=== PATIENT | female | born 1940 | race Asian ===

== ENCOUNTER 2019-07-05 11:23 | Inpatient (IN) | payer OTHER ==
[~2019-07-05] VITALS: Ht 154.9 cm; Wt 55.3 kg
--- NOTE | 2019-07-05 11:34 | NUR ---
Patient to ER bed 01 to gown for evaluation. Side rails up.
[2019-07-05 11:35] VITALS: BP_SYST 133
--- NOTE | 2019-07-05 11:45 | NUR ---
Patient was sent for eval of left hip pain and non-ambulation after unwitnessed fall. Patient is confused and does not localize pain, however she does verbalize that she is hungry.
--- NOTE | 2019-07-05 11:50 | NUR ---
ER Dr. Morrison at bedside examining patient.
[2019-07-05 12:24] LABS: ANION GAP 6 (5-15); BASOPHILS # (AUTO) 0.1 K/uL (0.0-0.2); BASOPHILS % (AUTO) 1.2 % (0.0-2.0); CALCIUM 8.4 mg/dL (8.4-11.0); CHLORIDE 109 mmol/L (98-107); CREATININE 0.72 mg/dL (0.55-1.30); EOSINOPHILS # (AUTO) 0.2 K/uL (0.0-0.4); EOSINOPHILS % (AUTO) 3.9 % (0.0-4.0); GLUCOSE 138 mg/dL (70-99); HEMATOCRIT 45.3 % (36-48); HEMOGLOBIN 15.2 g/dL (12.0-16.0); LYMPHOCYTES # (AUTO) 1.3 K/uL (1.0-5.5); MEAN CORPUSCULAR HEMOGLOBIN 33 pg (27-31); MEAN CORPUSCULAR HGB CONC 34 % (32-36); MEAN CORPUSCULAR VOLUME 98 fL (79.0-98.0); MONOCYTES # (AUTO) 0.6 K/uL (0.0-1.0); MONOCYTES % (AUTO) 10.2 % (1.7-9.3); NEUTROPHILS # (AUTO) 4.1 K/uL (1.8-7.7); NEUTROPHILS % (AUTO) 64.7 % (40.0-70.0); PLATELET COUNT (AUTO) 146 K/uL (130-430); POTASSIUM 4.3 mmol/L (3.5-5.1); RED BLOOD CELL COUNT(AUTO) 4.62 MIL/uL (4.2-6.2); RED CELL DISTRIBUTION WIDTH 15.4 % (9.0-15.0); SODIUM SERUM 143 mmol/L (136-145); UREA NITROGEN, BLOOD 15 mg/dL (8-21); WHITE BLOOD COUNT (AUTO) 6.3 K/uL (4.8-10.8)
[2019-07-05 12:29] LABS: INR 1.1 (0.8-1.2); PROTHROMBIN TIME 11.3 SECS (9.5-12.5)
[2019-07-05 12:30] LABS: ALANINE AMINOTRANSFERASE 246 U/L (12-78); ALBUMIN 3.1 g/dL (3.4-4.8); ASPARTATE AMINOTRANSFERASE 130 U/L (10-37); TOTAL BILIRUBIN 1.1 mg/dL (0.0-1.0)
--- NOTE | 2019-07-05 12:30 | NUR ---
# 16 FR Sandoval catheter with use of sterile technique. Immediate return of 100 cc clear yellow urine noted. Bedside drainage bag placed below level of bladder. Urine sample collected and sent to lab. Pt tolerated procedure well. Patient arrived with sandoval in place, changed due to standard of practice prior to admission. Patient unable to toilet self.
[2019-07-05 12:41] LABS: BILIRUBIN,URINE NEGATIVE (NEGATIVE); CLARITY/URINE SL HAZY (CLEAR); COLOR,URINE YELLOW (YELLOW); GLUCOSE,URINE NEGATIVE (NEGATIVE); KETONES,URINE NEGATIVE (NEGATIVE); LEUKOCYTE ESTERASE ,URINE NEGATIVE (NEGATIVE); NITRITE, URINE NEGATIVE (NEGATIVE); PH,URINE 5.5 (5.0-8.0); PROTEIN URINE NEGATIVE (NEGATIVE); UROBILINOGEN,URINE 0.2 (0.2-1.0)
[2019-07-05] MEDS ORDERED: fentaNYL CITRATE/PF 100 MCG/2 ML AMP IVP ONE (12:45)
[2019-07-05] MEDS ORDERED: ASPI-1153 PO (12:45)
[2019-07-05] MEDS ORDERED: LIP10 PO (12:45)
[2019-07-05] MEDS ORDERED: OLAN7.5T3 PO (12:45)
[2019-07-05] MEDS ORDERED: FURO-149 PO (12:45)
[2019-07-05] MEDS ORDERED: LISI10TA5 PO (12:45)
[2019-07-05] MEDS ORDERED: DONE10TA44 PO (12:45)
[2019-07-05] MEDS ORDERED: MOM PO (12:45)
[2019-07-05] MEDS ORDERED: CARV3.1246 PO (12:45)
[2019-07-05] MEDS ORDERED: ACET325T53 PO (12:45)
[2019-07-05] MEDS ORDERED: POTA20TA83 PO (12:45)
[2019-07-05] MEDS ORDERED: DOCU-144 PO (12:45)
[2019-07-05] MEDS ORDERED: ACET-2634 PO (12:45)
[2019-07-05] MEDS ORDERED: ISOS30TA6 PO (12:45)
[2019-07-05] MEDS ORDERED: LORA-258 PO (12:45)
[2019-07-05] MEDS ORDERED: DEPAK250 PO (12:45)
[2019-07-05 12:52] LABS: BLOOD, URINE TRACE (NEGATIVE)
[2019-07-05 12:55] LABS: BACTERIA,URINE RARE /HPF (None Seen); RBC,URINE 0-3 /HPF (0-3); WBC,URINE NONE SEEN /HPF (0-3)
[2019-07-05] MEDS ORDERED: MORPHINE 2 MG/ML INJ. SYRINGE IVP PRN (13:00)
[2019-07-05] MEDS ORDERED: ONDANSETRON HCL 4 MG/2 ML VIAL IVP PRN (13:00)
--- NOTE | 2019-07-05 13:09 | NUR ---
Patient will be admitted to care of Dr. Bautista. Admitted to telemetry unit. JOSE Roth to assign room. Belongings list completed. Summary report printed. Report will be given at bedside.
--- NOTE | 2019-07-05 14:00 | NUR ---
Patient transferred to room room 104B via [facility], mobile monitor, RN, EMT with patent/intact IV. Bedside report given to Jessica Rdz RN for continuation of care.
--- NOTE | 2019-07-05 14:05 | NUR ---
ADMIT NOTE Received pt from ER to the floor with a diagnosis of FEMUR FRACTURE. Admission process initiated. safety and call light-teach back done.NEEDS FOLLOW UP
--- NOTE | 2019-07-05 14:19 | NUR ---
Initial physical assessment: Patient alert, awake and oriented x1. Able to move upper extremities. Unable to move Lower extremities due to severe pain. No skin issues. Safety measures in placed. Call light within reach. Report received from AMANDA Arias nurse.
--- NOTE | 2019-07-05 14:29 | NUR ---
CONSULTATION PAGED REASON FOR CONSULTATION:FEMUR FRACTURE WAS CONSULT CALLED?Y PERSON WHO WAS NOTIFIED:TOÑO CONSULTING PHYSICIAN:CLARE NANCE WILLIAM (ASHISH BRYSON MERCHANDISER SEASONAL) [phone] AIR PLANT ENGINEER SPECIALTY:ORTHO AIR PLANT ENGINEER PHONE NUMBER:[phone] ORDERING PHYSICIAN:PADMAJA FRYE
[2019-07-05] MEDS: D5/0.45 NS 1,000 ML IV SCH ×2 (15:00→23:36)
[2019-07-05 15:14] VITALS: BP_SYST 132
[2019-07-05 15:16] VITALS: BP_SYST 123
--- NOTE | 2019-07-05 16:01 | NUR ---
ROUNDS: Patient sleeping. no distress noted.
--- NOTE | 2019-07-05 17:27 | NUR ---
rounds: patient sleeping. no distress noted.
[2019-07-05] MEDS: MORPHINE 2 MG/ML INJ. SYRINGE IVP PRN (18:11)
--- NOTE | 2019-07-05 18:53 | NUR ---
Closing notes: Patient on bed sleeping. Stable. Needs attended. Call light within reach. Report will be given to night shift manager.
--- NOTE | 2019-07-05 19:49 | NUR ---
OPENING NOTES Pt and endorsement received from day shift nurse. Pt is resting in bed with both eyes closed, with visible chest rise and fall with non-labored breathing noted. Pt on IVF with D5,0.45NS at 100ml/hr and infusing well on right AC G22. No moaning or grimacing noted. No signs of acute distress or SOB noted. Safety precautions in place with 3 side rails up, wheels locked, bed alarm on and in lowest level. Call light with pt. Will continue to monitor.
[2019-07-05 20:35] VITALS: BP_SYST 138
--- NOTE | 2019-07-05 20:58 | NUR ---
SEEN BY DR. BAUTISTA Pt seen by Dr. Bautista. He reviewed pt's home meds and continued or held medicines. Also ordered labs in the morning. Read back orders and will carry out.
[2019-07-05] MEDS ORDERED: MILK OF MAGNESIA 30 ML UDC PO PRN (21:00)
[2019-07-05] MEDS ORDERED: ACETAMINOPHEN 325 MG TABLET PO PRN (21:00)
[2019-07-05] MEDS ORDERED: ACETAMINOPHEN 500 MG TABLET PO PRN (21:00)
[2019-07-05] MEDS: LISINOPRIL 10 MG TABLET (PRINIVIL) PO SCH (21:33)
[2019-07-05] MEDS: DONEPEZIL HCL 5 MG TABLET (ARICEPT) PO SCH (21:33)
[2019-07-05] MEDS: OLANZapine 2.5 MG TABLET PO SCH (21:33)
[2019-07-05] MEDS: ATORVASTATIN 10 MG TABLET PO SCH (21:33)
[2019-07-05] MEDS: CARVEDILOL 3.125 MG TABLET (COREG) PO SCH (21:34)
[2019-07-05] MEDS: VALPROIC ACID 250 MG CAPSULE (DEPAKENE) PO SCH (21:34)
--- NOTE | 2019-07-05 21:35 | NUR ---
MED PASS All oral due meds given and pt tolerated well. Gave sandwich, pudding and juice per pt's request. No complains of pain and no signs of acute distress noted. IVF infusing well. Safety precautions in place and call light with pt. Will continue to monitor.
--- NOTE | 2019-07-05 23:30 | NUR ---
ROUNDS Pt is resting in bed with both eyes closed, with visible chest rise and fall with non-labored breathing noted. IVF infusing well. No signs of acute distress or SOB noted. Safety precautions in place and call light with pt. Will continue to monitor.
[2019-07-06 01:43] VITALS: BP_SYST 107
--- NOTE | 2019-07-06 02:40 | NUR ---
ROUNDS Pt is resting in bed with both eyes closed, with visible chest rise and fall with non-labored breathing noted. No complains of pain and no signs of acute distress or SOB noted. No needs at this time. Safety precautions in place and call light with pt. Will continue to monitor.
--- NOTE | 2019-07-06 04:07 | NUR ---
ROUNDS Pt is resting in bed with both eyes closed, with visible chest rise and fall with non-labored breathing noted. Pt is easily arousable. IVF infusing well. No signs of acute distress noted. Safety precautions in place and call light with pt. Will continue to monitor.
--- NOTE | 2019-07-06 06:35 | NUR ---
CLOSING NOTES Pt is resting in bed with both eyes closed, with visible chest rise and fall with non-labored breathing noted. IVF infusing well. No moaning or grimacing noted. No signs of acute distress or SOB noted. All needs attended throughout the shift. Safety precautions maintained with 3 side rails up, wheels locked, bed alarm on and in lowest level. Call light with pt. Will endorse to day shift nurse.
--- NOTE | 2019-07-06 07:30 | NUR ---
am rounds: Patient is awake, confused but calm. No signs of discomfort noted. Safety precaution in place. Call light within reach. Patient speaks Mohawk only.
[2019-07-06 07:48] LABS: ANION GAP 8 (5-15); BASOPHILS # (AUTO) 0.1 K/uL (0.0-0.2); BASOPHILS % (AUTO) 0.7 % (0.0-2.0); CALCIUM 7.8 mg/dL (8.4-11.0); CHLORIDE 106 mmol/L (98-107); EOSINOPHILS # (AUTO) 0.1 K/uL (0.0-0.4); EOSINOPHILS % (AUTO) 0.9 % (0.0-4.0); GLUCOSE 139 mg/dL (70-99); HEMOGLOBIN 12.2 g/dL (12.0-16.0); LYMPHOCYTES # (AUTO) 1.7 K/uL (1.0-5.5); LYMPHOCYTES % (AUTO) 19.5 % (20.5-51.5); MEAN CORPUSCULAR HEMOGLOBIN 33 pg (27-31); MEAN CORPUSCULAR HGB CONC 34 % (32-36); MEAN CORPUSCULAR VOLUME 98 fL (79.0-98.0); MONOCYTES # (AUTO) 1.3 K/uL (0.0-1.0); MONOCYTES % (AUTO) 14.8 % (1.7-9.3); NEUTROPHILS # (AUTO) 5.4 K/uL (1.8-7.7); NEUTROPHILS % (AUTO) 64.1 % (40.0-70.0); PLATELET COUNT (AUTO) 126 K/uL (130-430); POTASSIUM 3.9 mmol/L (3.5-5.1); RED BLOOD CELL COUNT(AUTO) 3.68 MIL/uL (4.2-6.2); RED CELL DISTRIBUTION WIDTH 14.8 % (9.0-15.0); SODIUM SERUM 138 mmol/L (136-145); UREA NITROGEN, BLOOD 9 mg/dL (8-21); WHITE BLOOD COUNT (AUTO) 8.5 K/uL (4.8-10.8)
[2019-07-06 08:42] VITALS: BP_SYST 132
--- NOTE | 2019-07-06 08:59 | NUR ---
Nutrition Update Boy Scale 15 noted. Pt admitted for femur fracture. Diet: regular BMI: 11 kg/m2 RD to follow per nutrition care standards.
[2019-07-06] MEDS: D5/0.45 NS 1,000 ML IV SCH ×2 (09:15→20:04)
[2019-07-06] MEDS: POTASSIUM CHLORIDE 20 MEQ TAB.PRT.SR PO SCH (09:17)
[2019-07-06] MEDS: cefTRIAXone 1 GM IVPB PREMIX 50 ML IV SCH (09:17)
[2019-07-06] MEDS: VALPROIC ACID 250 MG CAPSULE (DEPAKENE) PO SCH ×2 (09:18→20:47)
[2019-07-06] MEDS: ISOSORBIDE MONONITRATE 30 MG TAB.ER.24H PO SCH (09:18)
[2019-07-06] MEDS: FUROSEMIDE 40 MG TABLET PO SCH (09:18)
[2019-07-06] MEDS: CARVEDILOL 3.125 MG TABLET (COREG) PO SCH ×2 (09:19→20:47)
[2019-07-06] MEDS: DOCUSATE SODIUM 100 MG CAPSULE PO SCH (09:21)
--- NOTE | 2019-07-06 09:25 | NUR ---
Med pass: Patient took meds without difficulty.
--- NOTE | 2019-07-06 09:36 | NUR ---
KASSY CONSULT: S/W LINO CABAN FOR CONSULT. Addendum: 07/06/19 at 1758 by Lety Monterroso RN ID CONSULT CALLED: S/W LINO CABAN FOR CONSULT.
--- NOTE | 2019-07-06 10:30 | NUR ---
Rounds: Patient is resting. No change in assessment.
[2019-07-06 11:25] VITALS: BP_SYST 105
--- NOTE | 2019-07-06 14:15 | NUR ---
Rounds: Repositioned patient. pillow placed in between thighs.
[2019-07-06 15:23] VITALS: BP_SYST 98
--- NOTE | 2019-07-06 15:33 | NUR ---
Dietitian Recommendations * Recommend regular diet w/ Ensure Enlive BID (ONS provides 700 kcal/day, 40 gm protein/day) NORMA WAGONER Please refer to Nutrition Assessment for details. Addendum: 07/06/19 at [address] Amended: Links added.
--- NOTE | 2019-07-06 18:25 | NUR ---
end of shift: needs attended. no change in assessment. patient is calm.
--- NOTE | 2019-07-06 19:43 | NUR ---
Initial note: Received report from dayshift RN. Patient is awake in bed, no acute distress. Alert and oriented to name only. IV site to right AC is patent and benign, receiving IV fluids per MD order. Jovel catheter draining to gravity. Bed locked in lowest position, side rails raised x3, bed alarm on, room is close to nurses' station. Call light is with patient. Will continue to monitor.
[2019-07-06 20:00] VITALS: BP_SYST 123
[2019-07-06] MEDS: ATORVASTATIN 10 MG TABLET PO SCH (20:46)
[2019-07-06] MEDS: OLANZapine 2.5 MG TABLET PO SCH (20:46)
[2019-07-06] MEDS: DONEPEZIL HCL 5 MG TABLET (ARICEPT) PO SCH (20:47)
[2019-07-06] MEDS: LISINOPRIL 10 MG TABLET (PRINIVIL) PO SCH (20:47)
--- NOTE | 2019-07-06 21:44 | NUR ---
PAGED I PAGED DR. SPARKS @ [phone] I SPOKE WITH GLORY EXCHANGE
--- NOTE | 2019-07-06 22:41 | NUR ---
DR.HANES DR. SPARKS CALLED BACK @ [phone]
--- NOTE | 2019-07-06 22:42 | NUR ---
Dr. Georges: Dr. Georges called back at this time to clarify patient's procedure tomorrow. Dr. Georges stated that the surgery will be scheduled for some time in the evening. He ordered for the patient to be NPO after 0900. He stated that he will be available at the hospital at around 12 noon to discuss the procedure with family. Orders verified by read-back, RN to input. Will notify family regarding update in plan of care.
--- NOTE | 2019-07-06 22:50 | NUR ---
Spoke with daughter: Called patient's daughter Aide Swenson at [phone] and provided an update regarding the plan of care. Aide was informed that according to Dr. Georges, her mother will be undergoing surgery sometime in the evening, but she will need to speak with the doctor regarding the procedure before consent can be signed. Aide stated that she is unable to be at the hospital at 12 noon tomorrow to speak with Dr. Georges as she will be in and out of meetings. She stated that Dr. Georges can call her (phone [phone]) or her sister Meera Wood (phone [phone]) to discuss the procedure.
[2019-07-07 00:50] VITALS: BP_SYST 121
--- NOTE | 2019-07-07 01:12 | NUR ---
Rounds: Patient is resting in bed, no distress noted. Even and unlabored breathing on room air. IV fluids infusing well, no infiltration. Call light is with patient. Will continue to monitor.
--- NOTE | 2019-07-07 04:32 | NUR ---
Pain: Patient is awake, moaning and grimacing, indicating pain. Morphine 1 MG administered intravenously via right AC IV site. Site is patent and benign. Attempted to discuss indications and side effects of medication, but patient is confused. Call light with patient. Safety, fall precautions in place. Will continue monitoring.
[2019-07-07] MEDS: MORPHINE 2 MG/ML INJ. SYRINGE IVP PRN (04:38)
[2019-07-07] MEDS: D5/0.45 NS 1,000 ML IV SCH ×2 (05:33→22:33)
--- NOTE | 2019-07-07 06:26 | NUR ---
Closing note: Patient is resting in bed, no acute distress. Even and unlabored breathing on room air. IV fluids infusing as ordered to right AC IV site, no infiltration noted. Jovel catheter draining to gravity. All needs met. Safety and fall precautions observed. Hourly rounding performed throughout shift. Will endorse care to dayshift RN.
[2019-07-07 07:10] LABS: ANION GAP 7 (5-15); CALCIUM 8.5 mg/dL (8.4-11.0); CHLORIDE 104 mmol/L (98-107); CREATININE 0.62 mg/dL (0.55-1.30); GLUCOSE 158 mg/dL (70-99); POTASSIUM 4.3 mmol/L (3.5-5.1); SODIUM SERUM 140 mmol/L (136-145); UREA NITROGEN, BLOOD 6 mg/dL (8-21)
[2019-07-07 07:14] LABS: BASOPHILS # (AUTO) 0.1 K/uL (0.0-0.2); BASOPHILS % (AUTO) 0.7 % (0.0-2.0); EOSINOPHILS # (AUTO) 0.1 K/uL (0.0-0.4); EOSINOPHILS % (AUTO) 0.7 % (0.0-4.0); HEMATOCRIT 35.2 % (36-48); HEMOGLOBIN 11.9 g/dL (12.0-16.0); LYMPHOCYTES # (AUTO) 1.4 K/uL (1.0-5.5); LYMPHOCYTES % (AUTO) 16.1 % (20.5-51.5); MEAN CORPUSCULAR HEMOGLOBIN 33 pg (27-31); MEAN CORPUSCULAR HGB CONC 34 % (32-36); MEAN CORPUSCULAR VOLUME 98 fL (79.0-98.0); MONOCYTES # (AUTO) 1.4 K/uL (0.0-1.0); MONOCYTES % (AUTO) 15.1 % (1.7-9.3); NEUTROPHILS # (AUTO) 6.1 K/uL (1.8-7.7); NEUTROPHILS % (AUTO) 67.4 % (40.0-70.0); PLATELET COUNT (AUTO) 118 K/uL (130-430); RED CELL DISTRIBUTION WIDTH 14.7 % (9.0-15.0)
[2019-07-07 07:15] VITALS: BP_SYST 136
--- NOTE | 2019-07-07 07:45 | NUR ---
OPENING NOTES PT. was awake in bed. 3 side rails were up and bed was at lowest position. AAOx1 to her name. Reoriented pt. Pt. stated she had no pain. Right AC IV [address] with a gauze wrapped around the arm. Jovel catheter in place and intact. No signs or symptoms of distress noted. Safety precautions in place. Continue to monitor.
[2019-07-07] MEDS: cefTRIAXone 1 GM IVPB PREMIX 50 ML IV SCH (08:26)
[2019-07-07] MEDS: VALPROIC ACID 250 MG CAPSULE (DEPAKENE) PO SCH ×2 (08:26→21:51)
[2019-07-07] MEDS: DOCUSATE SODIUM 100 MG CAPSULE PO SCH (08:27)
[2019-07-07] MEDS: ISOSORBIDE MONONITRATE 30 MG TAB.ER.24H PO SCH (08:28)
[2019-07-07] MEDS: FUROSEMIDE 40 MG TABLET PO SCH (08:29)
[2019-07-07] MEDS: POTASSIUM CHLORIDE 20 MEQ TAB.PRT.SR PO SCH (08:30)
[2019-07-07] MEDS: CARVEDILOL 3.125 MG TABLET (COREG) PO SCH ×2 (08:30→21:52)
--- NOTE | 2019-07-07 09:00 | NUR ---
pt completed breakfast and am meds. kept npo per order.
--- NOTE | 2019-07-07 10:03 | NUR ---
ROUNDING PT. is confused about situation. Reoriented pt. on place, time, and reason for stay. Pt. denies any pain. No signs or symptoms of distress noted. Safety precaution in place. Continue to monitor.
--- NOTE | 2019-07-07 12:22 | NUR ---
ROUNDING Pt. as trying to get out of bed. Reposition pt. Currently pt. is laying in bed. Re-oriented pt. to place, time, and reason. Provided comfort measures. Call light in reach. No signs or symptoms of distress. Continue to monitor.
[2019-07-07 12:54] VITALS: BP_SYST 110
--- NOTE | 2019-07-07 13:06 | NUR ---
DR. CLARE Georges came in to get information about consent. Dr. Georges will call the family to explain the procedure.
--- NOTE | 2019-07-07 14:06 | NUR ---
ROUNDING Pt. is confused. Reoriented pt. to time, place, and reason. Provided comfort measures. Safety precaution is in place. Call light in reach. Continue to monitor.
--- NOTE | 2019-07-07 14:28 | NUR ---
CIGARETTE AND FILTER CHIEF INSPECTOR CIGARETTE AND FILTER CHIEF INSPECTOR came and got telephone consent from family regarding surgery.
--- NOTE | 2019-07-07 14:47 | NUR ---
VERIFIED CONSENT Verified consent with JOSE Haywood through the telephone. Confirming that the doctor and LIME KILN OPERATOR talked to her, Meera (daughter), about surgery. Meera confirmed.
[2019-07-07 16:00] VITALS: BP_SYST 100
--- NOTE | 2019-07-07 16:30 | NUR ---
OH CATHETER Pt. pulled out Oh Catheter. Reinserted Oh Catheter. Educated pt. on Oh Catheter. Continue to monitor. Addendum: 07/07/19 at 1739 by Marlen Vega RN Reinserted new Oh Catheter.
[2019-07-07 16:50] VITALS: BP_SYST 144
[2019-07-07] MEDS ORDERED: CEFAZOLIN 2 GM IVPB PREMIX 50 ML IV ONE (18:50)
[2019-07-07] MEDS ORDERED: LR 1,000 ML IV.SOLN IV ONE (18:50)
[2019-07-07] MEDS ORDERED: MORPHINE SULFATE 10MG/10ML PF AMP EP ONE (18:50)
[2019-07-07] MEDS ORDERED: BUPIVACAINE /DEX PF 0.75% SPINAL 2 ML AMP INJ ONE (18:50)
[2019-07-07] MEDS ORDERED: PROPOFOL 200MG/ 20ML VIAL (DIPRIVAN) IV ONE (18:50)
[2019-07-07] MEDS ORDERED: MIDAZOLAM HCL 5 MG/5 ML VIAL IVP ONE (18:50)
[2019-07-07] MEDS ORDERED: POLYMYXIN 500,000/BACIT.10,000 UNITS in NS IRR 1 L IR ONE (18:58)
--- NOTE | 2019-07-07 19:07 | NUR ---
CLOSING NOTES Pt. pulled out Jovel again. Re-inserted new Jovel Catheter. Transferred Pt. to O.R. Gave SBAR.
[2019-07-07] MEDS ORDERED: fentaNYL CITRATE/PF 100 MCG/2 ML AMP IVP PRN ×2 (19:45)
[2019-07-07] MEDS ORDERED: ONDANSETRON HCL 4 MG/2 ML VIAL IVP PRN (19:45)
[2019-07-07] MEDS ORDERED: KETOROLAC TROMETHAMINE 60 MG/2 ML VIAL IM PRN (19:45)
[2019-07-07] MEDS ORDERED: DIPHENHYDRAMINE INJ 50 MG/ML VIAL IVP PRN (19:45)
[2019-07-07] MEDS ORDERED: NALBUPHINE HCL 10 MG/ML AMP IVP PRN (19:45)
[2019-07-07] MEDS ORDERED: MORPHINE SULFATE 10MG/10ML PF AMP SP SCH (19:45)
[2019-07-07] MEDS ORDERED: NALOXONE HCL 0.4 MG/ML AMP (NARCAN) IVP PRN ×2 (19:45)
[2019-07-07 21:25] VITALS: BP_SYST 129
--- NOTE | 2019-07-07 21:25 | NUR ---
Initial note: Patient is back from OR accompanied by 2 RN's. Patient arrived awake, alert and oriented to name. Even and unlabored breathing on room air. IV to right AC was dislodged upon return to unit. New IV inserted by OR nurse JOSE Sesay to left hand at this time. Jovel catheter draining to gravity. Call light with patient. Will continue to monitor.
[2019-07-07] MEDS: ATORVASTATIN 10 MG TABLET PO SCH (21:51)
[2019-07-07] MEDS: OLANZapine 2.5 MG TABLET PO SCH (21:51)
[2019-07-07] MEDS: DONEPEZIL HCL 5 MG TABLET (ARICEPT) PO SCH (21:51)
[2019-07-07] MEDS: LISINOPRIL 10 MG TABLET (PRINIVIL) PO SCH (21:52)
[2019-07-07] MEDS ORDERED: CEFAZOLIN 1 GM IVPB PREMIX 100 ML IV ONE (21:55)
[2019-07-07] MEDS: CEFAZOLIN 1 GM IVPB PREMIX 50 ML IV SCH (22:33)
--- NOTE | 2019-07-07 23:13 | NUR ---
Dr. Georges: Spoke with Dr. Georges over phone. Informed MD of patient's surgical dressing moderately saturated in blood in two areas, one area measuring 5 CM in width and another area measuring 4.5 CM in width. MD was also made aware that the blood is leaking through the transparent dressing. Dr. Georges ordered to reinforce the surgical dressing with an abdominal pad folded in half. He stated to not remove the original dressing. Order verified by read-back, will follow through.
[2019-07-08 01:58] VITALS: BP_SYST 113
--- NOTE | 2019-07-08 02:32 | NUR ---
Rounds: Patient is resting in bed, no acute distress. Tolerating room air. IV fluids infusing as ordered. Call light is with patient. Will continue to monitor.
[2019-07-08 04:35] VITALS: BP_SYST 113
--- NOTE | 2019-07-08 04:56 | NUR ---
Rounds: Patient is resting in bed. Does not show any acute distress. IV site is patent and benign. Even and unlabored breathing on room air. Call light is with patient. Will continue to monitor.
[2019-07-08] MEDS: D5/0.45 NS 1,000 ML IV SCH ×2 (06:14→14:32)
[2019-07-08] MEDS: CEFAZOLIN 1 GM IVPB PREMIX 50 ML IV SCH (06:15)
--- NOTE | 2019-07-08 06:35 | NUR ---
Closing note: Patient is resting in bed, no distress. IV fluids infusing as ordered. All needs met. Hourly rounding performed throughout shift. Safety and fall precautions maintained. Will endorse to dayshift RN.
--- NOTE | 2019-07-08 07:20 | NUR ---
INITIAL NOTE BEDSIDE REPORT RECEIVED BY ERP CONSULTANT RN. PT RESTING IN BED. NO ACUTE DISTRESS NOTED. BREATHING EVEN AND UNLABORED. IVF INFUSING WELL. OH DRAINING TO GRAVITY. CALL LIGHT WITHIN REACH, BED IN LOW AND LOCKED POSITION WITH BED ALARM ON.
[2019-07-08 07:45] LABS: BASOPHILS % (AUTO) 0.5 % (0.0-2.0); EOSINOPHILS % (AUTO) 0.5 % (0.0-4.0); HEMATOCRIT 31.2 % (36-48); HEMOGLOBIN 10.7 g/dL (12.0-16.0); LYMPHOCYTES # (AUTO) 1.7 K/uL (1.0-5.5); LYMPHOCYTES % (AUTO) 16.5 % (20.5-51.5); MEAN CORPUSCULAR HEMOGLOBIN 34 pg (27-31); MEAN CORPUSCULAR HGB CONC 34 % (32-36); MEAN CORPUSCULAR VOLUME 99 fL (79.0-98.0); MONOCYTES # (AUTO) 1.7 K/uL (0.0-1.0); MONOCYTES % (AUTO) 16.7 % (1.7-9.3); NEUTROPHILS # (AUTO) 6.7 K/uL (1.8-7.7); NEUTROPHILS % (AUTO) 65.8 % (40.0-70.0); PLATELET COUNT (AUTO) 115 K/uL (130-430); RED BLOOD CELL COUNT(AUTO) 3.17 MIL/uL (4.2-6.2); WHITE BLOOD COUNT (AUTO) 10.2 K/uL (4.8-10.8)
[2019-07-08 08:00] VITALS: BP_SYST 97
[2019-07-08] MEDS: cefTRIAXone 1 GM IVPB PREMIX 50 ML IV SCH (08:23)
[2019-07-08] MEDS: POTASSIUM CHLORIDE 20 MEQ TAB.PRT.SR PO SCH ×2 (08:24→09:00)
[2019-07-08] MEDS: ISOSORBIDE MONONITRATE 30 MG TAB.ER.24H PO SCH (08:24)
[2019-07-08] MEDS: VALPROIC ACID 250 MG CAPSULE (DEPAKENE) PO SCH ×2 (08:24→22:30)
[2019-07-08] MEDS: DOCUSATE SODIUM 100 MG CAPSULE PO SCH (08:24)
--- NOTE | 2019-07-08 08:53 | NUR ---
Physical Therapy order has been received and the chart reviewed. Nurse requested to attempt the evaluation at a later time because the patient has low blood pressure. Plan: Attempt evaluation later. Check with RN regarding the patient's status.
[2019-07-08] MEDS: CARVEDILOL 3.125 MG TABLET (COREG) PO SCH ×2 (09:00→21:00)
[2019-07-08] MEDS: FUROSEMIDE 40 MG TABLET PO SCH (09:00)
--- NOTE | 2019-07-08 09:20 | NUR ---
RN ROUNDS REPOSITIONED PT FOR COMFORT. PT RESTING, BREATHING EVEN AND UNLABORED. NO ACUTE DISTRESS NOTED.
--- NOTE | 2019-07-08 11:20 | NUR ---
RN ROUNDS PT RESTING, NO ACUTE DISTRESS NOTED, BREATHING EVEN AND UNLABORED.
[2019-07-08 12:33] VITALS: BP_SYST 92
--- NOTE | 2019-07-08 13:04 | NUR ---
MD ROUNDS DR. ROJAS AT BEDSIDE EXAMINING PT.
--- NOTE | 2019-07-08 13:05 | NUR ---
MD ROUNDS DR. ROJAS AT BEDSIDE EXAMINING PATIENT.
[2019-07-08] MEDS: LORazepam 1 MG TABLET PO PRN ×2 (14:07→18:22)
--- NOTE | 2019-07-08 14:07 | NUR ---
RN ROUNDS PATIENT AGITATED, PULLING ON LINES. PRN ATIVAN INDICATED FOR RESTLESSNESS AND AGITATION. ATIVAN ADMINISTERED. WILL CONTINUE TO MONITOR.
[2019-07-08 15:13] VITALS: BP_SYST 103
--- NOTE | 2019-07-08 16:00 | NUR ---
RN ROUNDS PT RESTING IN BED. FAMILY AT BEDSIDE. NO ACUTE DISTRESS NOTED. BREATHING EVEN AND UNLABORED.
--- NOTE | 2019-07-08 16:44 | NUR ---
RN ROUNDS PATIENT SAT UP WITH PHYSICAL THERAPY. PT REFUSED TO STAND UP. REPOSITIONED PT BACK IN BED. NO ACUTE DISTRESS NOTED.
[2019-07-08] MEDS: ENOXAPARIN SODIUM 40 MG/0.4 ML SYRINGE SUBCUT SCH (19:00)
--- NOTE | 2019-07-08 19:42 | NUR ---
CLOSING NOTE BEDSIDE REPORT GIVEN TO MANAGER TRAINING RN. PT RESTING IN BED, NO ACUTE DISTRESS NOTED, BREATHING EVEN AND UNLABORED. OH DRAINING TO GRAVITY, IV FLUIDS INFUSING WELL. CALL LIGHT WITHIN REACH, BED IN LOW AND LOCKED POSITION WITH BED ALARM ON. PT CARE ENDORSED TO MANAGER TRAINING RN.
--- NOTE | 2019-07-08 19:45 | NUR ---
PM NOTES RECEIVE PATIENT FROM AM NURSE. PT RESTING IN BED, NO ACUTE DISTRESS NOTED, BREATHING EVEN AND UNLABORED. OH DRAINING TO GRAVITY, IV FLUIDS INFUSING WELL. PATIENT NEEDS MET AND ATTENDED. CALL LIGHT WITHIN REACH, BED IN LOW AND LOCKED POSITION WITH BED ALARM ON.
[2019-07-08] MEDS ORDERED: NS 500 ML IV SCH ×2 (20:00→23:00)
[2019-07-08] MEDS: LISINOPRIL 10 MG TABLET (PRINIVIL) PO SCH (21:00)
--- NOTE | 2019-07-08 22:00 | NUR ---
RN ROUNDS Patient is asleep. No signs of respiratory distress. NO SOB. Breathing even and unlabored. Will continue to monitor.
[2019-07-08] MEDS: ATORVASTATIN 10 MG TABLET PO SCH (22:29)
[2019-07-08] MEDS: OLANZapine 2.5 MG TABLET PO SCH (22:29)
[2019-07-08] MEDS: DONEPEZIL HCL 5 MG TABLET (ARICEPT) PO SCH (22:31)
--- NOTE | 2019-07-09 | NUR ---
MIDNIGHT VITALS Patient Vital taken by FABRIC AWNING REPAIRER. BP within normal limits. IV bolus not indicated at this time. Patient is asleep. No signs of respiratory distress. Will continue to monitor.
[2019-07-09 00:46] VITALS: BP_SYST 113
--- NOTE | 2019-07-09 02:00 | NUR ---
RN ROUNDS Patient is asleep. No signs or respiratory distress. Breathing even and unlabored. Will continue to monitor.
[2019-07-09] MEDS: D5/0.45 NS 1,000 ML IV SCH ×3 (03:16→15:44)
[2019-07-09 04:00] VITALS: BP_SYST 104
--- NOTE | 2019-07-09 04:10 | NUR ---
RE ENFORCED DRESSING Re enforced dressing per MD order. No active bleeding noted. Patient tolerated well. All needs met. Call light with patient. Bed alarm on. Will continue to monitor.
[2019-07-09 06:29] LABS: BASOPHILS % (AUTO) 0.6 % (0.0-2.0); EOSINOPHILS # (AUTO) 0.2 K/uL (0.0-0.4); EOSINOPHILS % (AUTO) 1.7 % (0.0-4.0); HEMATOCRIT 28.6 % (36-48); HEMOGLOBIN 9.9 g/dL (12.0-16.0); LYMPHOCYTES # (AUTO) 1.6 K/uL (1.0-5.5); LYMPHOCYTES % (AUTO) 18.2 % (20.5-51.5); MEAN CORPUSCULAR HEMOGLOBIN 34 pg (27-31); MEAN CORPUSCULAR HGB CONC 35 % (32-36); MEAN CORPUSCULAR VOLUME 99 fL (79.0-98.0); MONOCYTES # (AUTO) 1.5 K/uL (0.0-1.0); MONOCYTES % (AUTO) 16.9 % (1.7-9.3); NEUTROPHILS # (AUTO) 5.6 K/uL (1.8-7.7); NEUTROPHILS % (AUTO) 62.6 % (40.0-70.0); PLATELET COUNT (AUTO) 148 K/uL (130-430); RED BLOOD CELL COUNT(AUTO) 2.89 MIL/uL (4.2-6.2); RED CELL DISTRIBUTION WIDTH 14.9 % (9.0-15.0); WHITE BLOOD COUNT (AUTO) 8.9 K/uL (4.8-10.8)
--- NOTE | 2019-07-09 06:37 | NUR ---
CLOSING NOTES Patient in bed at this time, sleeping. No s/s of acute distress noted. Breathing even and unlabored. IVF infusing well, IV site patent, no signs of infiltration or infection noted. Skin warm and dry to touch. Jovel attached, secured, and draining by gravity. Right hip dressing intact, clean, and dry. No signs of active bleeding noted. All needs met throughout shift. Fall and safety precautions maintained throughout shift. Will continue to monitor until patient care is endorsed to oncoming dayshift nurse.
[2019-07-09 07:04] LABS: ANION GAP 5 (5-15); CALCIUM 7.7 mg/dL (8.4-11.0); CHLORIDE 101 mmol/L (98-107); CREATININE 0.54 mg/dL (0.55-1.30); GLUCOSE 146 mg/dL (70-99); POTASSIUM 3.4 mmol/L (3.5-5.1); SODIUM SERUM 135 mmol/L (136-145); UREA NITROGEN, BLOOD 7 mg/dL (8-21)
--- NOTE | 2019-07-09 07:25 | NUR ---
OPENING NOTE: MORNING REPORT TAKEN AT BEDSIDE WITH NIGHT NURSE. PT RESTING IN BED WITH NO SIGNS OF RESP DISTRESS. OH HANGING TO GRAVITY. CALL LIGHT IS IN REACH. BED ALARM IS ON AND BED IN LOWEST POSITION WITH SIDE RAILS UP. WILL CONTINUE TO MONITOR.
[2019-07-09 08:27] VITALS: BP_SYST 107
[2019-07-09] MEDS: VALPROIC ACID 250 MG CAPSULE (DEPAKENE) PO SCH ×2 (08:44→20:19)
[2019-07-09] MEDS: ISOSORBIDE MONONITRATE 30 MG TAB.ER.24H PO SCH (08:47)
[2019-07-09] MEDS: POTASSIUM CHLORIDE 20 MEQ TAB.PRT.SR PO SCH (08:47)
[2019-07-09] MEDS: DOCUSATE SODIUM 100 MG CAPSULE PO SCH (08:48)
[2019-07-09] MEDS: CARVEDILOL 3.125 MG TABLET (COREG) PO SCH ×2 (08:48→20:20)
[2019-07-09] MEDS: FUROSEMIDE 40 MG TABLET PO SCH (08:48)
[2019-07-09] MEDS: ENOXAPARIN SODIUM 40 MG/0.4 ML SYRINGE SUBCUT SCH (08:54)
[2019-07-09 11:27] VITALS: BP_SYST 136
--- NOTE | 2019-07-09 11:43 | NUR ---
ENDORSED CARE TO JOSE VICTORIA
--- NOTE | 2019-07-09 11:44 | NUR ---
NOTE RECEIVED REPORT FROM KAMERON GARCIA. RECEIVED PATIENT RESTING IN BED; EASILY AROUSABLE. STABLE. NO ACUTE DISTRESS. NO SOB. RESPIRATION EVEN AND UNLABORED. SKIN WARM AND DRY TO TOUCH. IV INTACT AND PATENT. RIGHT HIP SURGICAL DRESSING INTACT AND PATENT WITH NO ACTIVE BLEEDING. ELEVATED BILAT ANKLE ON PILLOW. ALL NEEDS MET. CONT TO MONITOR WITH FREQUENT VISUAL CHECK.
--- NOTE | 2019-07-09 13:58 | NUR ---
SEEN AND EXAMINED BY AT BEDSIDE Addendum: 07/09/19 at 1417 by Rosalinda Lyn RN PATIENT RESTING IN BED; EASILY AROUSABLE. NO S/SX PAIN. NO ACUTE DISTRESS. PATIENT ABLE TO WIGGLE TOES ON BILAT FEET. CONT TO MONITOR.
--- NOTE | 2019-07-09 15:02 | NUR ---
PHYSICAL THERAPY CO-SIGN The Physical Therapy Progress Notes documented by Cementer have been reviewed. Reviewed/Co-Signed by: Zoey Reinoso PT Documentation Done by:ANNAMARIE GONZALEZ PTA POC REVIEWED W/ FLEXO OPERATOR; WILL BENEFIT W/ P.T. POST ACUTE STAY. 07/09/19 Hgb=9.9 Addendum: 07/09/19 at 1503 by Zoey Reinoso PT Amended: Links added.
[2019-07-09 15:25] VITALS: BP_SYST 106
[2019-07-09] MEDS: MORPHINE 2 MG/ML INJ. SYRINGE IVP PRN (15:45)
--- NOTE | 2019-07-09 15:45 | NUR ---
PAIN PATIENT C/O PAIN 6/10 TO RIGHT HIP. MORPHINE ADMINISTERED ORDERED, JULES WELL. VITAL SIGN STABLE. PATIENT ABLE TO MOVE AND WIGGLE TOES TO BILAT FEET. CONT TO MONITOR
--- NOTE | 2019-07-09 16:58 | NUR ---
F/C PATIENT PULLED OUT OH CATHETER; NO BLEEDING NOTED. PATIENT STABLE. NO C/O PAIN. CONT TO MONITOR. WILL NOTIFY
--- NOTE | 2019-07-09 17:40 | NUR ---
void PATIENT VOIDED X1 YELLOW. INCONTINENCE CARE PROVIDED. KEPT CLEAN AND DRY. CALL LIGHT IN REACH. CONT TO MONITOR
--- NOTE | 2019-07-09 17:44 | NUR ---
Nutrition Follow Up RD reviewed pt's current EMR including diet hx, physician notes, nursing notes, pertinent labs/meds/procedures, care trends and care activity. Current diet order: Regular x 2 days PO intake 62% avg x 6 meals Subjective Information: Pt seen resting in bed, asleep upon RD visit. Per nursing notes, pt refused 1 meal but drank 100% of Ensure. Pt seems to be tolerating supplement with no difficulty. Per nursing, appetite is fair, no c/o of nausea, vomiting, or diarrhea. No bowel movements today yet. Estimated Energy Expenditure (kcals/day) 5401-3265 kcal/day (30-35 kcal/kg CBW for possible Sx) Estimated Protein Required (g/day) 66-83 gm/day (1.2-1.5 gm/kg CBW for possible Sx) Estimated Fluid Required (l/day) 1.4 L/day (25 ml/kg CBW for geriatric maintenance) Problem/Etiology/Signs/Symptoms Increased nutritional needs related to metabolic demands as evidenced by estimated nutritional requirements for possible Sx. Expected Outcomes/Goals - Monitor appetite and PO intakes w/ goal of pt meeting at least 75% of estimated nutritional needs, labs trending WNL, normal GI function, and skin integrity/wt maintenance Dietitian Recommendations 1. Continue regular diet w/ Ensure Enlive BID (ONS provides 700 kcal/day, 40 gm protein/day) 2. Encourage PO intake as tolerated Follow Up Moderate Risk: F/U in 3-5 days LT, NORMA Addendum: 07/09/19 at [address] Nutrition Follow Up RD reviewed pt's current EMR including diet hx, physician notes, nursing notes, pertinent labs/meds/procedures, care trends and care activity. Current diet order: Regular x 2 days PO intake 62% avg x 6 meals Subjective Information: Pt is s/p ORIF to right hip. Pt seen resting in bed, asleep upon RD visit. Per nursing notes, pt refused 1 meal but drank 100% of Ensure. Pt seems to be tolerating supplement with no difficulty. Per nursing, appetite is fair, no c/o of nausea, vomiting, or diarrhea. No bowel movements today yet. Estimated Energy Expenditure (kcals/day) 3217-8837 kcal/day (30-35 kcal/kg CBW for possible Sx) Estimated Protein Required (g/day) 66-83 gm/day (1.2-1.5 gm/kg CBW for possible Sx) Estimated Fluid Required (l/day) 1.4 L/day (25 ml/kg CBW for geriatric maintenance) Problem/Etiology/Signs/Symptoms Increased nutritional needs related to metabolic demands as evidenced by estimated nutritional requirements for surgery *ongoing Expected Outcomes/Goals - Monitor appetite and PO intakes w/ goal of pt meeting at least 75% of estimated nutritional needs, labs trending WNL, normal GI function, and skin integrity/wt maintenance Dietitian Recommendations 1. Continue regular diet w/ Ensure Enlive BID (ONS provides 700 kcal/day, 40 gm protein/day) 2. Encourage PO intake as tolerated Follow Up Moderate Risk: F/U in 3-5 days LT, RD
--- NOTE | 2019-07-09 17:56 | NUR ---
Dietitian Recommendations 1. Continue regular diet w/ Ensure Enlive BID (ONS provides 700 kcal/day, 40 gm protein/day) 2. Encourage PO intake as tolerated Please see Nutrition Follow Up for details. LT, RD
--- NOTE | 2019-07-09 18:45 | NUR ---
DR.HANES MAX PACE X2 REGARDING PATIENT PULLING OUT OH; AWAITING FOR CALL BACK Addendum: 07/09/19 at 1931 by Rosalinda Lyn RN FARM REPORTER
--- NOTE | 2019-07-09 18:50 | NUR ---
CLOSING NOTE PATIENT AWAKE IN BED. NO C/O PAIN AT THIS TIME. NO ACUTE DISTRESS. NO SOB. SKIN WARM AND DRY TO TOUCH. IV INTACT AND PATENT; JULES IVF. KEPT CLEAN AND DRY. BED IN LOW AND LOCKED POSITION. SIDERAIL UPX3. BED ALARM ON. ROOM NEAR NURSES STATION. ALL NEEDS MET. CONT TO MONITOR
--- NOTE | 2019-07-09 19:15 | NUR ---
OPENING NOTES Bedside report received from dayshift nurse. Patient received lying down, sleeping. No s/s of acute distress noted. Breathing even and unlabored. IVF infusing well, IV site patent, no signs of infiltration or infection noted. Heels elevated with pillow. SCD attached to left lower extremity, operating. Skin warm and dry to touch. Right hip dressing intact, clean, and dry, no signs of active bleeding noted. Call light with patient. Bed alarm on. Bed is locked and at lowest position. Will continue to monitor.
[2019-07-09 20:00] VITALS: BP_SYST 99
[2019-07-09] MEDS: DONEPEZIL HCL 5 MG TABLET (ARICEPT) PO SCH (20:18)
[2019-07-09] MEDS: ATORVASTATIN 10 MG TABLET PO SCH (20:18)
[2019-07-09] MEDS: OLANZapine 2.5 MG TABLET PO SCH (20:19)
[2019-07-09] MEDS: LISINOPRIL 10 MG TABLET (PRINIVIL) PO SCH (20:19)
--- NOTE | 2019-07-09 20:45 | NUR ---
DR. JONES CALLED BACK Dr. Jones covering for Dr. Georges, called back at this time. MD made aware that patient removed her Jovel, no signs of active bleeding or distress at this time. Patient has already voided, and that today is 2nd day post op. No new orders were given.
--- NOTE | 2019-07-09 23:00 | NUR ---
ROUNDS Patient in bed sleeping at this time. No s/s of acute distress noted. Breathing even and unlabored. IVF infusing well. Call light with patient. Bed alarm on. Will continue to monitor.
[2019-07-10 00:59] VITALS: BP_SYST 149
--- NOTE | 2019-07-10 01:00 | NUR ---
ROUNDS Patient in bed sleeping. No signs of discomfort noted. Chest rise and fall even bilaterally. IVF infusing well. No signs of active bleeding noted. Heels elevated with pillow. SCD attached to left lower extremity, operating. Call light with patient. Bed alarm on. Will continue to monitor.
[2019-07-10] MEDS: D5/0.45 NS 1,000 ML IV SCH ×2 (01:36→14:13)
--- NOTE | 2019-07-10 03:00 | NUR ---
ROUNDS Patient asleep at this time. No s/s of acute distress noted. Breathing even and unlabored. IVF infusing well. Call light with patient. Bed alarm on. Will continue to monitor.
--- NOTE | 2019-07-10 05:00 | NUR ---
PERICARE Patient received incontinent care by PROCUREMENT ANALYST and RN. Patient tolerated well. IVF infusing well. Call light with patient. Bed alarm on. Will continue to monitor.
--- NOTE | 2019-07-10 06:37 | NUR ---
CLOSING NOTES Patient in bed sleeping. No s/s of acute distress noted. Breathing even and unlabored. HOB slightly raised. IVF infusing well, IV site patent, no signs of infiltration or infection noted. Right hip dressing intact, clean, and dry. No signs of active bleeding noted. Skin warm and dry to touch. Neuro checks WNL. Heels elevated with pillow. All needs met throughout shift. Fall and safety precautions maintained throughout shift. Will continue to monitor until patient care is endorsed to oncoming dayshift nurse.
[2019-07-10 06:51] LABS: BASOPHILS # (AUTO) 0.1 K/uL (0.0-0.2); BASOPHILS % (AUTO) 0.6 % (0.0-2.0); EOSINOPHILS # (AUTO) 0.2 K/uL (0.0-0.4); EOSINOPHILS % (AUTO) 2.6 % (0.0-4.0); HEMATOCRIT 31.5 % (36-48); HEMOGLOBIN 10.8 g/dL (12.0-16.0); LYMPHOCYTES % (AUTO) 25.8 % (20.5-51.5); MEAN CORPUSCULAR HEMOGLOBIN 34 pg (27-31); MEAN CORPUSCULAR HGB CONC 34 % (32-36); MEAN CORPUSCULAR VOLUME 99 fL (79.0-98.0); MONOCYTES % (AUTO) 13.3 % (1.7-9.3); NEUTROPHILS # (AUTO) 4.5 K/uL (1.8-7.7); NEUTROPHILS % (AUTO) 57.7 % (40.0-70.0); PLATELET COUNT (AUTO) 188 K/uL (130-430); RED BLOOD CELL COUNT(AUTO) 3.17 MIL/uL (4.2-6.2); RED CELL DISTRIBUTION WIDTH 14.7 % (9.0-15.0); WHITE BLOOD COUNT (AUTO) 7.8 K/uL (4.8-10.8)
--- NOTE | 2019-07-10 07:36 | NUR ---
OPENING NOTE RECEIVED PATIENT AWAKE IN BED. PATIENT REMOVING GOWN AND PULLING AT LINES. REORIENTED PATIENT. NO S/SX PAIN. ROOM AIR. NO ACUTE DISTRESS. NO SOB. RESPIRATION EVEN AND UNLABORED. SKIN WARM AND DRY TO TOUCH. RIGHT HIP DRESSING C/D/I. PATIENT ABLE TO WIGGLE TOES TO BILAT FEET. BED IN LOW AND LOCKED POSITION. SIDERAIL UPX3. BED ALARM ON. ROOM NEAR NURSES STATION. ALL NEEDS MET. CALL LIGHT IN REACH. CONT TO MONITOR
[2019-07-10] MEDS: CARVEDILOL 3.125 MG TABLET (COREG) PO SCH ×2 (08:12→22:28)
[2019-07-10] MEDS: VALPROIC ACID 250 MG CAPSULE (DEPAKENE) PO SCH ×2 (08:12→22:27)
[2019-07-10] MEDS: POTASSIUM CHLORIDE 20 MEQ TAB.PRT.SR PO SCH (08:12)
[2019-07-10] MEDS: DOCUSATE SODIUM 100 MG CAPSULE PO SCH (08:12)
[2019-07-10] MEDS: ISOSORBIDE MONONITRATE 30 MG TAB.ER.24H PO SCH (08:13)
[2019-07-10] MEDS: FUROSEMIDE 40 MG TABLET PO SCH (08:13)
[2019-07-10] MEDS: ENOXAPARIN SODIUM 40 MG/0.4 ML SYRINGE SUBCUT SCH (08:15)
--- NOTE | 2019-07-10 08:20 | NUR ---
MEDS ALL DUE MEDS ADMINISTERED ORDERED, JULES WELL. TEACHING ON MEDICATION AND ASE DONE. CONT TO MONITOR
--- NOTE | 2019-07-10 10:30 | NUR ---
NOTE INCONTINENCE CARE PROVIDED, JULES WELL. SMALL BMX1. KEPT CLEAN AND DRY. ALL NEEDS MET. CONT TO MONITOR
[2019-07-10 11:16] VITALS: BP_SYST 110
--- NOTE | 2019-07-10 12:00 | NUR ---
NOTE PATIENT REPOSITIONED FOR LUNCH, JULES WELL. INCONTINENCE CARE PROVIDED. ALL NEEDS MET. CONT TO MONITOR
--- NOTE | 2019-07-10 14:00 | NUR ---
SEEN AND EXAMINED BY CLEARED BY TO TRANSFER BACK TO SNF
--- NOTE | 2019-07-10 16:00 | NUR ---
NOTE PATIENT PULLING AT HOSPITAL GOWN. REORIENTED PATIENT. CHANGED GOWN. REPOSITIONED. CONT TO MONITOR
--- NOTE | 2019-07-10 17:00 | NUR ---
REPORT REPORT GIVEN TO QUANG BILL AT [facility]. PATIENT GOING TO ROOM 5A AND FERRY OPERATOR TIME 1800 BY [facility]
--- NOTE | 2019-07-10 17:15 | NUR ---
RESP CONSTITUTION PARTY UNABLE TO REACH SABINO CAICEDO AND JAKI KELLY. MADE RICKY AQUINO AWARE OF PATIENT TRANSFER BACK TO [facility] Addendum: 07/10/19 at 1836 by Rosalinda Lyn RN RICKY AQUINO [phone]
[2019-07-10 17:23] VITALS: BP_SYST 90
--- NOTE | 2019-07-10 17:30 | NUR ---
SEEN AND EXAMINED BY AT BEDSIDE.
[2019-07-10 17:43] VITALS: BP_SYST 108
--- NOTE | 2019-07-10 18:00 | NUR ---
[facility] CALLED AND REPORTED THEY ARE UNABLE FOR 1830 FABRICATION MACHINE OPERATOR. SCHEDULED FABRICATION MACHINE OPERATOR CHANGED TO 1999
--- NOTE | 2019-07-10 18:37 | NUR ---
Discharge Planning: Pt.signed pt. choice form. and was agreeable to placement. Ambulance , [facility], pharmacy picking technician arranged and Rn. Tellez notified. Pt. will be going back to [facility] room 23B. Phone for Rn report is [phone].
--- NOTE | 2019-07-10 18:48 | NUR ---
CLOSING NOTE PATIENT AWAKE IN BED. STABLE. NO ACUTE DISTRESS. NO SOB. RESPIRATION EVEN AND UNLABORED. SKIN WARM AND DRY TO TOUCH. IV INTACT AND PATENT. LINENS AND GOWN CHANGED. AWAITING FOR [facility] FOR POSTAL CARRIER FOR TRANSFER TO [facility]. CONT TO MONITOR. WILL ENDORSE TO ONCOMING SHIFT.
[2019-07-10] MEDS: LISINOPRIL 10 MG TABLET (PRINIVIL) PO SCH (22:26)
[2019-07-10] MEDS: OLANZapine 2.5 MG TABLET PO SCH (22:27)
[2019-07-10] MEDS: ATORVASTATIN 10 MG TABLET PO SCH (22:29)
[2019-07-10] MEDS: DONEPEZIL HCL 5 MG TABLET (ARICEPT) PO SCH (22:29)
[2019-07-11] VITALS (7 sets, daily range): BP systolic 109–155
--- NOTE | 2019-07-11 07:40 | NUR ---
OPENING NOTES: RECEIVED PATIENT FROM COUNTY ADMINISTRATOR NURSE. PATIENT ASLEEP IN BED. NO SIGNS OF DISTRESS OR SHORTNESS OF BREATH NOTED. IV SITE IS PATENT WITH NO SIGNS OF INFILTRATION AND RUNNING FLUIDS ORDERED. PATIENT TOLERATING OXYGEN AT ROOM AIR. PATIENT IN STABLE CONDITION. WILL CONTINUE TO MONITOR PATIENT FOR ANY CHANGES.
[2019-07-11] MEDS: VALPROIC ACID 250 MG CAPSULE (DEPAKENE) PO SCH (08:33)
[2019-07-11] MEDS: FUROSEMIDE 40 MG TABLET PO SCH (08:33)
[2019-07-11] MEDS: POTASSIUM CHLORIDE 20 MEQ TAB.PRT.SR PO SCH (08:34)
[2019-07-11] MEDS: DOCUSATE SODIUM 100 MG CAPSULE PO SCH (08:34)
[2019-07-11] MEDS: ISOSORBIDE MONONITRATE 30 MG TAB.ER.24H PO SCH (08:35)
[2019-07-11] MEDS: CARVEDILOL 3.125 MG TABLET (COREG) PO SCH (08:35)
[2019-07-11] MEDS: ENOXAPARIN SODIUM 40 MG/0.4 ML SYRINGE SUBCUT SCH (08:36)
[2019-07-11] MEDS: D5/0.45 NS 1,000 ML IV SCH ×2 (08:37)
--- NOTE | 2019-07-11 10:15 | NUR ---
RN ROUNDS: PATIENT AWAKE AND ALERT x1. PATIENT DENIES ANY PAIN AT THE MOMENT. NO SIGNS OF DISTRESS OR SHORTNESS OF BREATH NOTED. PATIENT IN STABLE CONDITION. WILL CONTINUE TO MONITOR PATIENT FOR ANY CHANGES.
--- NOTE | 2019-07-11 11:30 | NUR ---
DC Planning: Received call from pt's dtrs/Meera and Rosalba requesting patient not returning back to [facility] but requesting [facility] instead. Meera already spoke with [facility] for the possible transfer there for skilled and predatory animal exterminator placement. Nazario Parmarp made aware and to process her request.
--- NOTE | 2019-07-11 12:38 | NUR ---
Discharge Planning: DCP faxed pt referral to [facility] )f [phone] p [phone]) DCP spoke to Fany in admissions. DCP to follow up. Addendum: 07/11/19 at 1354 by Lynda Cameron DP [facility] (f [phone] p [phone]) per Fany pt accepted to [facility], DCP made CM aware.
--- NOTE | 2019-07-11 12:40 | NUR ---
RN ROUNDS: PATIENT IS AWAKE AND ALERT x1. IN BED. NO SIGNS OF DISTRESS OR SHORTNESS OF BREATH NOTED. PATIENT DENIES ANY PAIN AT THE MOMENT. PATIENT IN STABLE CONDITION. WILL CONTINUE TO MONITOR PATIENT FOR ANY CHANGES.
--- NOTE | 2019-07-11 14:23 | NUR ---
RN ROUNDS: PATIENT IS AWAKE AND ALERT x1 LAYING DOWN IN BED. NO SIGNS OF DISTRESS OR SHORTNESS OF BREATH NOTED. PATIENT IN STABLE CONDITION. WILL CONTINUE TO MONITOR PATIENT FOR ANY CHANGES.
--- NOTE | 2019-07-11 14:46 | NUR ---
DC Planning: Notified pt.'s dtr/Meera that [facility] accepted the pt. and already has bed available for dc today. Dr. Bautista made aware by CHAYO Leon. The MD stated he will come in for the dc reeval and will speak with dtrs for the final snf destination: [facility] vs returning back to [facility].
--- NOTE | 2019-07-11 16:20 | NUR ---
RN ROUNDS: PATIENT IS AWAKE AND ALERT x1 IN BED. NO SIGNS OF DISTRESS OR SHORTNESS OF BREATH NOTED. PATIENT IN STABLE CONDITION. WILL CONTINUE TO MONITOR PATIENT FOR ANY CHANGES.
--- NOTE | 2019-07-11 16:56 | NUR ---
Discharge planning Received a call from patient daughter angelia who stated that they found another place for possible transfer which is [facility]. Angelia requestaed that clinicals be fax to the facility. MAURO with Marielle at [facility] who provided Fax number [phone].
--- NOTE | 2019-07-11 18:16 | NUR ---
discharge planning patient is accepted at [facility]. Daughter Rosalba is aware, Dr Bautista is aware. Patient is going to room 48. [facility] will spanish moss picker patient at 1930. Addendum: 07/11/19 at 1819 by John Marlow RN tel to give report,
--- NOTE | 2019-07-11 18:47 | NUR ---
CLOSING NOTES: PATIENT IS AWAKE AND ALERT x1 LAYING DOWN IN BED. PATIENT READY TO BE PICKED UP FOR DISCHARGE. PATIENT DENIES ANY PAIN AT THE MOMENT. NO SIGNS OF DISTRESS OR SHORTNESS OF BREATH NOTED. IV SITE IS PATENT WITH NO SIGNS OF INFILTRATION. PATIENT IN STABLE CONDITION. SAFETY, FALL AND ASPIRATION PRECAUTIONS ARE IN PLACE. BED LOCKED IN LOWEST POSITION WITH CALL LIGHT IN REACH. WILL ENDORSE PATIENT CARE TO ONCOMING REAM CUTTER NURSE.
--- NOTE | 2019-07-11 18:55 | NUR ---
Report Report given to Marielle at [facility]. [facility] will picker/puller patient at 1930. Daughters are aware
--- NOTE | 2019-07-11 19:43 | NUR ---
D/C Patient Patient given medication reconciliation form and D/C instructions. Exit Care provided. Patient is confused. pt is discharge to [facility]. Patient in stable condition, ID band removed. IV catheter removed, intact and dressing applied, no active bleeding. pt health information pocket given to ambulance crew. All belongings sent with patient.
== END 2019-07-11 19:51 | DRG 480 ==
LOC: SED 11:23 → STU 13:00
PROVIDERS: ADMIT Internal Medicine; ATTEND Internal Medicine
PROC: 0QS606Z Reposition Right Upper Femur with Intramedullary Internal Fixation Device, Open Approach (ICD-10-PCS; principal; 2019-07-08)
DX: S72.141A Displaced intertrochanteric fracture of right femur, initial encounter for closed fracture (principal); E43 Unspecified severe protein-calorie malnutrition; R64 Cachexia; E78.5 Hyperlipidemia, unspecified; F03.90 Unspecified dementia, unspecified severity, without behavioral disturbance, psychotic disturbance, mood disturbance, and anxiety; F31.9 Bipolar disorder, unspecified; I70.90 Unspecified atherosclerosis; W19.XXXA Unspecified fall, initial encounter; R82.71 Bacteriuria; Z51.5 Encounter for palliative care; I95.9 Hypotension, unspecified; I10 Essential (primary) hypertension; Z79.899 Other long term (current) drug therapy; Z79.82 Long term (current) use of aspirin; Y93.89 Activity, other specified; Y92.098 Other place in other non-institutional residence as the place of occurrence of the external cause; Y99.8 Other external cause status
CPT/HCPCS: 36415; 71045; 72170-TC; 73502; 76000; 80048; 80053; 81000-TC; 85025; 85610-TC; 85730-TC; 86886; 86900; 86901; 87081; 93005; 94010; 97110-GP; 97163; 97530-GP; 99285; C1713; C1769; G0378; J0690; J0696; J1650; J2250; J2270; J2274; J2704; J3010; J3490; J7040; J7120